=== PATIENT | male | born 1990 ===

== ENCOUNTER 2017-07-16 19:17 | Emergency (ER) | payer OTHER ==
[2017-07-16 19:27] VITALS: BP 145/89
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
[2017-07-16] MEDS ORDERED: Cyclobenzaprine TAB* 10 MG PO ONE (21:05)
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
== END 2017-07-16 21:10 | disposition home or self-care (01) ==
LOC: UCEAST 19:17
DX: S43.402A Unspecified sprain of left shoulder joint, initial encounter (principal); W55.29XA Other contact with cow, initial encounter; Y93.89 Activity, other specified; Y92.89 Other specified places as the place of occurrence of the external cause; Y99.0 Civilian activity done for income or pay; M54.5 Low back pain
CPT/HCPCS: 72100; 81003; 99202; A9270-GY; G0463

== ENCOUNTER 2017-12-16 19:09 | Emergency (ER) | payer OTHER ==
[2017-12-16] MEDS ORDERED: Ibuprofen TAB* 600 MG PO ONE (19:50)
[2017-12-16] MEDS ORDERED: Albuterol/Ipratropium NEB.SOL* Albuterol 2.5 MG/Ipratropium 0.5 MG 3 ML INH ONE (19:51)
[2017-12-16] MEDS ORDERED: Oseltamivir CAP* 75 MG PO ONE (20:41)
--- NOTE | 2017-12-16 20:47 | UC ---
Eloise Greer Emily, scribed for Macario Prajapati MD on 12/16/17 at 1953 . HPI Febrile Illness - HPI Summary HPI Summary: This patient is a 27 year old M presenting to urgent care with a chief complaint of cough that began 1 day ago. The patient rates the pain 3/10 in severity. Symptoms aggravated by nothing. Symptoms alleviated by chills. Patient reports LEY, myalgia, chills, fever, nasal discharge, stiff neck, and wheezing. - History of Current Complaint Chief Complaint: UCRespiratory Time Seen by Provider: 12/16/17 19:43 Hx Obtained From: Patient Onset/Duration: Started Days Ago, Still Present Timing: Constant Initial Severity: Mild Current Severity: Mild Pain Intensity: 3 Pain Scale Used: 0-10 Numeric Aggravating Factors: Nothing Alleviating Factors: Nothing Associated Signs and Symptoms: Other: - Positive LEY, myalgia, chills, fever, nasal discharge, stiff neck, and wheezing - Allergy/Home Medications Allergies/Adverse Reactions: Allergies Allergy/AdvReac Type Severity Reaction Status Date / Time ANIMAL FLEA MEDICINE Allergy Severe Hives Uncoded 12/16/17 19:42 PINK L[place]ONADE Allergy Severe Hives Uncoded 12/16/17 19:42 PMH/Surg Hx/FS Hx/Imm Hx Previously Healthy: Yes Cardiovascular History: Other Other Cardiovascular History: Negative HTN Respiratory History: Other Other Respiratory History: Negative asthma - Surgical History Surgical History: None - Family History Known Family History: Positive: Other Family History: Asthma - Social History Occupation: Employed Full-time Lives: With Family Alcohol Use: Occasionally Substance Use Type: None Smoking Status (MU): Current Every Day Smoker Type: Smokeless Tobacco Review of Systems Constitutional: Fever, Chills ENT: Nasal Discharge Respiratory: Cough, Other - Positive wheezing Musculoskeletal: Myalgia, Other: - Positive stiff neck Neurological: Headache All Other Systems Reviewed And Are Negative: Yes Physical Exam Triage Information Reviewed: Yes Vital Signs: Initial Vital Signs Temp 101.4 F 12/16/17 19:40 Vital Signs Reviewed: Yes - Additional Comments General: mildly ill appearing, no pain distress Skin: warm, color reflects adequate perfusion, dry Head: normal Eyes: EOMI, JASON ENT: posterior pharynx is slightly erythematous Neck: supple, nontender, positive anterior cervical lymphadenopathy Respiratory: breath sounds present, rare wheeze Cardiovascular: tachycardic Abdomen: soft, nontender Bowel: present Musculoskeletal: normal, strength/ROM intact Neurological: normal, sensory/motor intact, A&O x3 Psychological: affect/mood appropriate Course/Dx - Course Course Of Treatment: SOB IS MILD, DUONEB DID NOT IMPROVE THE SOB. DISCUSSED RESULTS WITH PATIENT AND MOTHER. F/U PMD; REEVAL IF WORSE. - Diagnoses Clinic Provider Diagnoses: INFLUENZA Discharge - Discharge Plan Condition: Stable Disposition: HOME Prescriptions: Oseltamivir CAP* [Tamiflu CAP*] 75 mg PO BID #9 cap Patient Education Materials: Influenza (ED) Forms: *Work Release Referrals: [facility] [place] PHYSICIAN REFERRAL [Outside] No Primary Care Phys,NOPCP [Primary Care Provider] - Additional Instructions: FOLLOW UP WITH YOUR DOCTOR. GET RECHECKED FOR ANY WORSENING OF YOUR CONDITION OR QUESTIONS OR CONCERNS. The documentation as recorded by the Eloise hussein Emily accurately reflects the service I personally performed and the decisions made by me, Macario Prajapati MD.
== END 2017-12-16 20:47 | disposition home or self-care (01) ==
LOC: UCEAST 19:09
DX: J11.1 Influenza due to unidentified influenza virus with other respiratory manifestations (principal); Z72.0 Tobacco use; Z72.89 Other problems related to lifestyle
CPT/HCPCS: 87502; 99212; A9270-GY; G0463